=== PATIENT | male | born 2000 | race Caucasian/White ===

== ENCOUNTER 2022-02-21 23:51 | Emergency (ER) | payer OTHER, SELFPAY ==
[2022-02-22 00:10] VITALS: BP 124/88; PULSE 89; RESP 18; TEMP 36.7; O2SAT 96; BMI 21.9
== END 2022-02-22 08:25 | disposition left against medical advice (07) ==
PROVIDERS: Emergency Provider Emergency Medicine; PCP Pediatrics
DX: H92.02 Otalgia, left ear (principal)
CPT/HCPCS: 99281

== ENCOUNTER 2022-12-14 12:21 | Emergency (ER) | payer SELFPAY ==
--- NOTE | 2022-12-14 | ECG_ITS ---
Test Reason : CHEST PAIN Blood Pressure : / mmHG Vent. Rate : 083 BPM Atrial Rate : 083 BPM P-R Int : 132 ms QRS Dur : 082 ms QT Int : 344 ms P-R-T Axes : 066 081 040 degrees QTc Int : 404 ms Normal sinus rhythm with sinus arrhythmia Normal ECG No previous ECGs available Referred By: Generic ED Physician Electronically Signed By:Olvin Aguila
--- NOTE | ~2022-12-14 | XR_ITS ---
EXAMINATION: XR CHEST CLINICAL INFORMATION: Left-sided chest pain. COMPARISON: None available. TECHNIQUE: 2 views of the chest were obtained. FINDINGS: No significant abnormality is noted involving the heart, lungs, mediastinum, bony thorax or soft tissues. XR/XR chest 2V IMPRESSION: No acute cardiopulmonary process.
--- NOTE | 2022-12-14 12:24 | ED.CHESTPAIN ---
HPI - Chest Pain General Chief Complaint: Chest Pain Stated Complaint: chest pain Time Seen by Provider: 12/14/22 13:20 Source: patient Mode of arrival: ambulatory History of Present Illness HPI narrative: 22-year-old male with history of 1 kidney, presents for complaints of left-sided chest pain that does not worsen with deep inspiration but does worsen with movement states that he was working last night and moving and number heavy packages and then developed the pain on the left side of the chest without headache, dizziness, shortness of breath and denies any radiation, denies any nausea. Patient states that the pain is still there and denies any recent fever, chills, palpitations, new cough for sore throat and denies any numbness/tingling/weakness into either upper extremity. Related Data Allergies Allergy/AdvReac Type Severity Reaction Status Date / Time ondansetron [From ZOFRAN] Allergy Mild HIVES Verified 12/14/22 12:29 Review of Systems Review of Systems: Pertinent positives and negatives as stated in HPI PMFSH Past Medical History Source: nursing notes reviewed Social History Social History Alcohol intake: never Smoked in Last 30 Days: No Use of substances other than those prescribed or required for medical reasons: No Advance Directives: No Advance Directives Information Provided: No Physical Exam Vital Signs: Vital Signs: Last Vital Signs Temp 97.0 F 12/14/22 12:26 Pulse 77 12/14/22 13:02 Resp 18 12/14/22 13:02 BP 128/74 12/14/22 13:02 Pulse Ox 96 12/14/22 13:02 O2 Del Method Room Air 12/14/22 13:02 BMI result Body Mass Index 22.6 VITAL SIGNS: Reviewed. GENERAL: Well developed, well nourished, in no acute distress. HEAD: Normocephalic/atraumatic EYES: PERRLA, EOMI EARS: Ext canals without abnormality NOSE: Nares patent bilateral OROPHARYNX: no oral lesions noted, posterior pharynx clear NECK: Supple, no adenopathy LUNGS: Normal breath sounds. No adventitious sounds or accessory muscle use. SpO2<96>; CHEST WALL: No reproducible pain on palpation CARDIOVASCULAR: Regular rate and rhythm without noted murmurs, symmetrical pulses ABDOMEN: Soft, non-tender, non-distended with bowel sounds. MUSCULOSKELETAL: No tenderness, deformities, or effusions noted on gross inspection. EXTREMITIES: No cyanosis, clubbing or edema. SKIN: Inspection of the skin reveals no rashes NEUROLOGIC: Alert and oriented x 4. Strength and sensation to light touch were grossly intact x 4. Course Course Course Narrative: VIKRAM- 12:30pm - 22yoM presenting to the ED with c/o of left sided chest pain that started while at work. Reports at work he does a lot of heavy lifting. Was out of work for few months she recently started working again at [employer]. Denies drug usage such as cocaine. Denies recent travel, injury, Dizziness, headaches, changes in vision, cough, sob, AZAR, orthopnea, abd pain, N/V, leg swelling. Denies family hx of sudden , IL/CVA at a young age. Denies any other symptoms complaints or concerns at this time. Plan: Patient is stable to go back to the waiting room to be evaluated in the ED will obtain labs, chest x-ray and EKG. Medical Decision Making Medical Decision Making [facility] Narrative: 22-year-old male with history and clinical presentation, DDX: Musculoskeletal, anterior chest wall muscle strain, low clinical suspicion for pneumonia/ACS/pericarditis/myocarditis. I reviewed all investigations, chest x-ray not consistent with pneumonia or cardiomegaly, hematologic indices are all within normal limits therefore no concerns for infectious etiology, troponin is undetectable, there is no evidence of IRENE. I do note that there is a mild bump in CK however this is likely consistent with muscle strain, very mild, will encourage fluid hydration as patient only has 1 kidney will discharge with recommendations for Tylenol and lidocaine patch. Differential Diagnosis Differential Diagnoses: The differential diagnosis associated with the presentation includes Please see the discussion above Admission/Observation Consideration of admission/observation: Escalation of care including admission/observation considered Lab Data [facility] Lab Attestation statement: I reviewed the patient's lab results. Please see the discussion above 12/14/22 12:35 12/14/22 12:35 Labs: Lab Results 12/14/22 12/14/22 12/14/22 Range/Units 12:35 12:35 12:35 WBC 8.9 (4.8-10.8) X10*3/uL RBC 5.04 (4.60-5.80) X10*6/uL Hgb 14.8 (14.0-18.0) g/dl Hct 42.8 (42.0-52.0) % MCV 84.9 (80.0-98.0) fL MCH 29.4 (27.0-33.0) pg MCHC 34.6 (31.0-36.0) g/dl RDW 11.7 (11.0-16.0) % Plt Count 224 (160-400) X10*3/uL MPV 9.4 (9.4-12.4) fL Immature Gran % (Auto) 0.2 (0.0-0.4) % Neut % (Auto) 63.9 (45-73) % Lymph % (Auto) 20.9 (20-40) % [place] % (Auto) 10.4 (2-11) % Eos % (Auto) 3.7 (0-4) % Baso % (Auto) 0.9 (0-2) % Lymph # (Auto) 1.9 (1.2-4.9) X10*3/uL [place] # (Auto) 0.9 (0.1-1.2) X10*3/uL Eos # (Auto) 0.3 (0.0-0.4) X10*3/uL Baso # (Auto) 0.1 (0.0-0.2) X10*3/uL Abs Immat Gran (auto) 0.02 (0.00-0.03) X10*3/uL Absolute Neuts (auto) 5.7 (2.0-8.3) x10*3/uL Absolute Nucleated RBC 0.000 (0.0-0.012) X10*3/uL Nucleated RBC % (auto) 0.0 (0.0-0.2) /100WBC Sodium 138 (135-145) mmol/L Potassium 3.9 (3.3-5.1) mmol/L Chloride 105 (96-108) mmol/L Carbon Dioxide 22 (22-29) mmol/L Anion Gap 15 (12-20) BUN 9 (9-16) mg/dL Creatinine 0.95 (0.5-1.4) mg/dL Estim Creat Clear Calc 111.4 Estimated GFR > 60 Random Glucose 89 (60-115) mg/dL Calcium 9.0 (8.4-10.2) mg/dL Magnesium 2.0 (1.6-2.6) mg/dL Total Bilirubin 0.6 (0.0-1.0) mg/dL Direct Bilirubin 0.2 (0.0-0.5) mg/dL AST 25 (5-37) U/L ALT 14 (0-40) U/L Alkaline Phosphatase 63 (39-117) U/L Total Creatine Kinase 266 H (38-174) U/L Troponin I High Sens < 2.7 (<3.5-35.0) ng/L Total Protein 7.5 (6.5-8.0) g/dL Albumin 4.6 (3.5-5.0) g/dL Independent Interpretation I performed an independent interpretation of an: EKG Interpretation: Normal sinus rhythm, HR-83, no STEMI, [place]/QRS/QTC is within normal limits. Radiology Impression Radiologist Impression: No pneumonia, otherwise my interpretation is in agreement with radiology's impression. Discharge Plan Discharge Clinical Impression: Atypical chest pain, Muscle strain of anterior chest wall Patient Disposition: Home, Self-Care Instructions: Muscle Strain (ED), Chest Wall Pain (ED) Additional Instructions: 1. Tylenol 1000 mg, orally, every 6 hours as needed for pain control. Do not exceed 4000 mg within 24 hours. 2. Lidocaine patch, apply to area of maximal tenderness as directed on the outside packaging. 3. Follow-up with your primary care provider on Thursday morning. Return to the ER for any worsening symptoms. Referrals: Lobo Olson MD [Primary Care Provider] -
[2022-12-14 12:26] VITALS: BP 129/76; PULSE 91; RESP 16; TEMP 36.1; O2SAT 98; BMI 22.6
[2022-12-14 12:47] LABS: Basophils Absolute Auto 0.1 X10*3/uL (0.0-0.2); Basophils Percent Auto 0.9 % (0-2); Eosinophils Absolute Auto 0.3 X10*3/uL (0.0-0.4); Eosinophils Percent Auto 3.7 % (0-4); Hematocrit 42.8 % (42.0-52.0); Hemoglobin 14.8 g/dl (14.0-18.0); Imm Gran Abs Auto 0.02 X10*3/uL (0.00-0.03); Imm Gran Pct Auto 0.2 % (0.0-0.4); Lymphocytes Absolute Auto 1.9 X10*3/uL (1.2-4.9); Lymphocytes Percent Auto 20.9 % (20-40); MANUAL DIFF FLAG NO; Mean Corpuscular HGB Conc 34.6 g/dl (31.0-36.0); Mean Corpuscular Hemoglobin 29.4 pg (27.0-33.0); Mean Corpuscular Volume 84.9 fL (80.0-98.0); Mean Platelet Volume 9.4 fL (9.4-12.4); Monocytes Absolute Auto 0.9 X10*3/uL (0.1-1.2); Monocytes Percent Auto 10.4 % (2-11); Neutrophils Absolute Auto 5.7 x10*3/uL (2.0-8.3); Neutrophils Percent Auto 63.9 % (45-73); Platelet Count 224 X10*3/uL (160-400); Red Blood Count 5.04 X10*6/uL (4.60-5.80); Red Cell Distribution Width 11.7 % (11.0-16.0); White Blood Count 8.9 X10*3/uL (4.8-10.8)
[2022-12-14 13:02] VITALS: BP 128/74; PULSE 77; RESP 18; O2SAT 96
--- NOTE | 2022-12-14 13:04 | PC.NURSE ---
Alert and oriented. arrived from home reporting 6/10 left sided chest pain. States works overnight at [employer] and around 3:45am started having the pain after lifting heavy boxes/ States tried to rest but pain did not go away. VSS, nsr on monitor,. Denies sob, or headache.
[2022-12-14 13:08] LABS: Alanine Aminotransferase 14 U/L (0-40); Albumin Level 4.6 g/dL (3.5-5.0); Alkaline Phosphatase 63 U/L (39-117); Anion Gap 15 (12-20); Aspartate Amino Transferase 25 U/L (5-37); Bilirubin Direct 0.2 mg/dL (0.0-0.5); Bilirubin Total 0.6 mg/dL (0.0-1.0); Blood Urea Nitrogen 9 mg/dL (9-16); Carbon Dioxide 22 mmol/L (22-29); Chloride 105 mmol/L (96-108); Creatinine Clr Calc Pharmacy 111.4; Estimated Glomerular Filt Rate > 60; Glucose Random 89 mg/dL (60-115); Potassium 3.9 mmol/L (3.3-5.1); Sodium 138 mmol/L (135-145); Total Protein 7.5 g/dL (6.5-8.0)
[2022-12-14 13:19] LABS: Troponin-I High Sensitivity < 2.7 ng/L (<3.5-35.0)
--- OUTSIDE RECORDS SUMMARY | 2022-12-14 13:25 | XMS_ITS | Summary of Care ---
Author Name Unknown Organization [facility] sp[facility] Address [address] [place] [address]- Care Team Providers Care Cut Out Machine Operator Name Role Phone POPPY DENSON MD Primary Care Physician [phone] Encounter [facility]_CSN [id number] Date(s): 03/07/21 - 03/07/[address] [address]- Discharge Disposition: Discharge Attending Physician: MARIA ELENA TOBIN MD Referring Physician: POPPY DENSON MD Allergies, Adverse Reactions, Alerts Substance Reaction Severity Status Zofran Active Problem List Condition Effective Dates Status Health Status Inform ant CKD stage 1(Confirmed) 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
--- OUTSIDE RECORDS SUMMARY | 2022-12-14 13:25 | XMS_ITS | Summary of Care ---
Author Name Unknown Organization [facility] Address [address] [place] [address]- Care Team Providers Care Harvesting Contractor Name Role Phone POPPY DENSON MD Primary Care Physician [phone] Encounter [facility]_CSN [id number] Date(s): 09/11/21 - 09/11/[address] [address]- Encounter Diagnosis Chronic kidney disease, stage 2 (mild)(Final) - Renal agenesis, unilateral(Final) - Other specified congenital malformations of kidney(Final) - Discharge Disposition: Home Attending Physician: MARIA ELENA TOBIN MD Referring Physician: POPPY DENSON MD Allergies, Adverse Reactions, Alerts Substance Reaction Severity Status Zofran Active Problem List Condition Effective Dates Status Health Status Inform ant CKD stage 1(Confirmed) 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
--- OUTSIDE RECORDS SUMMARY | 2022-12-14 13:25 | XMS_ITS | Summary of Care ---
Author Name Unknown Organization [facility] Address [address] [place] [address]- Care Team Providers Care Ethanol Operations Manager Name Role Phone POPPY DENSON MD Primary Care Physician Encounter [facility]_CSN [id number] Date(s): 11/16/19 - 11/16/[address] [address]- [facility] Encounter Diagnosis Chronic kidney disease, stage 1(Final) - Renal agenesis, unilateral(Final) - Other specified congenital malformations of kidney(Final) - Discharge Disposition: Discharge Attending Physician: MAI BLACK MD Referring Physician: POPPY DENSON MD Allergies, Adverse Reactions, Alerts Substance Reaction Severity Status Zofran Active Problem List Condition Effective Dates Status Health Status Inform ant CKD stage 1(Confirmed) 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
--- OUTSIDE RECORDS SUMMARY | 2022-12-14 13:25 | XMS_ITS | Summary of Care ---
Author Name Unknown Organization [facility] Address [address] [place] [address]- Care Team Providers Care Mortician Supplies Sales Representative Name Role Phone POPPY DENSON MD Primary Care Physician [phone] Encounter [facility]_CSN [id number] Date(s): 04/09/22 - 04/09/[address] [address]- Encounter Diagnosis Encounter for immunization(Final) - Discharge Disposition: Discharge Attending Physician: MAHAD NEWTON, MARIA ELENA Mg Referring Physician: POPPY DENSON MD Allergies, Adverse Reactions, Alerts Substance Reaction Severity Status Zofran Active Medications Benadryl Special Instructions: as needed for hives, Entered: 04/09/22 12:21:00 EST Start Date: 04/09/22 Status: Ordered Problem List Condition Effective Dates Status Health Status Inform ant CKD stage 1(Confirmed) 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
--- OUTSIDE RECORDS SUMMARY | 2022-12-14 13:25 | XMS_ITS | Summary of Care ---
Author Name Unknown Organization [facility] Address [address] [place] [address]- Care Team Providers Care Closing Coordinator Name Role Phone POPPY DENSON MD Primary Care Physician [phone] [facility] [id number] Date(s): 08/09/20 - 08/09/[address] [address]- [facility] Discharge Disposition: Discharge Attending Physician: MAI BLACK [...]
--- OUTSIDE RECORDS SUMMARY | 2022-12-14 13:26 | XMS_ITS | Summary of Care ---
Author Name Unknown Organization [facility] Address [address] [place] [address]- Care Team Providers Care Loss Prevention Officer Name Role Phone POPPY DENSON MD Primary Care Physician [phone] Encounter [facility]_CSN [id number] Date(s): 04/09/22 - 04/09/[address] [address]- Encounter Diagnosis Encounter for immunization(Final) - Discharge [...]
--- OUTSIDE RECORDS SUMMARY | 2022-12-14 13:26 | XMS_ITS | Summary of Care ---
Author Name Unknown Organization [facility] Address [address] [place] [address]- Care Team Providers Care Ship Boss Name Role Phone POPPY DENSON MD Primary Care Physician Encounter [facility]_CSN [id number] Date(s): 09/12/20 - 09/12/[address] [address]- Encounter Diagnosis Chronic kidney disease, stage 2 (mild)(Final) - Other specified congenital malformations of kidney(Final) - Renal agenesis, unilateral(Final) - Discharge Disposition: Discharge Attending Physician: MARIA ELENA [...]
--- OUTSIDE RECORDS SUMMARY | 2022-12-14 13:26 | XMS_ITS | Summary of Care ---
Author Name Unknown Organization [facility] Address [address] [place] [address]- Care Team Providers Care Plug Stitcher Name Role Phone POPPY DENSON MD Primary Care Physician Encounter [facility]_CSN [id number] Date(s): 09/11/21 - 09/11/[address] [address]- Encounter Diagnosis Chronic kidney disease, stage 2 (mild)(Final) - Renal agenesis, unilateral(Final) - Other specified congenital malformations of kidney(Final) - Discharge Disposition: Discharge Attending Physician: MARIA [...]
--- OUTSIDE RECORDS SUMMARY | 2022-12-14 13:26 | XMS_ITS | Summary of Care ---
Author Name Unknown Organization [facility] Address [address] [place] [address]- Care Team Providers Care Patient Service Rep Name Role Phone POPPY DENSON MD Primary Care Physician Encounter [facility]_CSN [id number] Date(s): 08/02/20 - 08/02/[address] [address]- [facility] Discharge Disposition: Discharge Attending [...]
--- OUTSIDE RECORDS SUMMARY | 2022-12-14 13:26 | XMS_ITS | Summary of Care ---
Author Name Unknown Organization [facility] Address [address] [place] [address]- Care Team Providers Care Modeling Analyst Name Role Phone POPPY DENSON MD Primary Care Physician [phone] Encounter [facility]_CSN [id number] Date(s): 11/16/19 - 10/26/[address] [address]- [facility] Attending Physician: ROM GAITAN MD Referring Physician: POPPY DENSON MD Allergies, Adverse Reactions, Alerts Substance Reaction Severity Status Zofran Active Medications albuterol Entered: 01/13/14 14:43:57 EDT, Therapy Maintenance Start Date: 01/13/14 Status: Ordered Flonase Entered: 01/13/14 14:44:06 EDT, Therapy Maintenance Start Date: 01/13/14 Status: Ordered Problem List No Known Problems
--- OUTSIDE RECORDS SUMMARY | 2022-12-14 13:26 | XMS_ITS | Summary of Care ---
Author Name Unknown Organization [facility] Address Unknown Care Team Providers Care Mammography Supervisor Name Role Phone POPPY DENSON MD Primary Care Physician [phone] Encounter [facility] [id number] Date(s): 08/02/20 - 08/02/20 [facility] Discharge Disposition: Discharge Attending Physician: MAI BLACK [...]
--- OUTSIDE RECORDS SUMMARY | 2022-12-14 13:26 | XMS_ITS | Summary of Care ---
Author Name Unknown Organization [facility] Address Unknown Care Team Providers Care Board Certified Arts Therapist Name Role Phone POPPY DENSON MD Primary Care Physician Encounter [facility] [id number] Date(s): 03/07/21 - 03/07/21 [facility] Discharge Disposition: Discharge Attending Physician: MARIA ELENA [...]
[2022-12-14] MEDS: Lidocaine 4 % Patch ADH..PATCH 1 PATCH TRANSDERMA (14:13)
[2022-12-14] MEDS: Acetaminophen 325 MG TABLET 975 MG PO (14:13)
[2022-12-14 14:14] VITALS: BP 132/80; PULSE 105; RESP 18
== END 2022-12-14 14:26 | disposition home or self-care (01) ==
PROVIDERS: Emergency Provider Student in an Organized Health Care Education/Training Program; PCP Pediatrics
DX: R07.89 Other chest pain (principal); M94.0 Chondrocostal junction syndrome [Tietze]
CPT/HCPCS: 36415; 71046; 80053; 82248; 82550; 83735; 84484; 85025; 93005; 99284; 99285

== ENCOUNTER → 2022-12-14 12:25 | Outpatient (BNV) | payer SELFPAY | PROVIDERS: Emergency Provider Student in an Organized Health Care Education/Training Program; PCP Pediatrics; Visit Provider Internal Medicine Cardiovascular Disease | DX: R07.9 Chest pain, unspecified (principal) | CPT/HCPCS: 93010 ==